=== PATIENT | female | born 1995 | race Caucasian/White ===

== ENCOUNTER 2016-10-19 00:53 | Emergency (ER) | payer OTHER, SELFPAY ==
[~2016-10-19] VITALS: Ht 154.9 cm; Wt 102.5 kg
[~2016-10-19 00:53] MED LIST: /ADVA50050 INH; ALBUTERAL INH; CIPRO PO; PRIL20CA OR
[2016-10-19 00:54] VITALS: BP 126/80
[2016-10-20] MEDS ORDERED: BACT800T5 PO (20:21)
== END 2016-10-19 03:33 | disposition left against medical advice (07) ==
LOC: M ED 00:53
DX: N64.9 Disorder of breast, unspecified (principal); Z53.29 Procedure and treatment not carried out because of patient's decision for other reasons

== ENCOUNTER 2016-10-20 19:29 | Emergency (ER) | payer SELFPAY ==
[~2016-10-20] VITALS: Ht 154.9 cm; Wt 100.9 kg
[2016-10-20 19:29] VITALS: BP 112/73
[2016-10-20] MEDS ORDERED: NORCO 5/325MG TABLET (BULK FOR ED) PO ONE (20:15)
[2016-10-20] MEDS ORDERED: BACTRIM 160MG/800MG DS TAB PO ONE (20:15)
[2016-10-20] MEDS ORDERED: BACT800T5 PO (20:21)
== END 2016-10-20 20:27 | disposition home or self-care (01) ==
LOC: EEVIPCON 19:29 → M ED 19:29
DX: N61.1 Abscess of the breast and nipple (principal); N61.0 Mastitis without abscess; J45.909 Unspecified asthma, uncomplicated; Z88.0 Allergy status to penicillin

== ENCOUNTER 2017-05-25 01:28 | Emergency (ER) | payer MEDICAID, SELFPAY, OTHER ==
[2017-05-25 03:28] LABS: APPEARANCE, URINE CLOUDY (CLEAR); BACTERIA, URINE AUTO NEGATIVE (NEGATIVE); BILIRUBIN, URINE AUTO NEGATIVE (NEGATIVE); BLOOD, URINE BLOOD 1+ (NEGATIVE); CALCIUM OXALATE CRYSTALS SMALL; COLOR, URINE YELLOW (YELLOW); GLUCOSE, URINE (UA) AUTO NEGATIVE (NEGATIVE); KETONE, URINE AUTO NEGATIVE (NEGATIVE); LEUKOCYTE ESTERASE, URINE AUTO NEGATIVE (NEGATIVE); MUCUS, URINE MODERATE (NEGATIVE); NITRITE, URINE AUTO NEGATIVE (NEGATIVE); PROTEIN, URINE AUTO NEGATIVE (NEGATIVE); RBC, URINE AUTO 2 /HPF (0-3); SPECIFIC GRAVITY URINE AUTO 1.027 (1.002-1.035); SQUAMOUS EPITHELIAL CELL UR AU 6 /HPF (0-6); WBC, URINE AUTO 1 /HPF (0-3)
== END 2017-05-25 04:06 | disposition home or self-care (01) ==
LOC: M ED 01:28
DX: R30.0 Dysuria (principal); F17.210 Nicotine dependence, cigarettes, uncomplicated; Z88.8 Allergy status to other drugs, medicaments and biological substances; Z88.0 Allergy status to penicillin
CPT/HCPCS: 81001

== ENCOUNTER 2017-06-18 19:55 | Emergency (ER) | payer SELFPAY ==
[2017-06-18 20:41] LABS: KETONE, URINE AUTO RFX NEGATIVE (NEGATIVE); LEUKOCYTE ESTERASE UR AUTO RFX NEGATIVE (NEGATIVE); MUCUS, URINE RFX SMALL (NEGATIVE); NITRITE, URINE AUTO RFX NEGATIVE (NEGATIVE); RBC, URINE AUTO RFX 1 /HPF (0-3); SPECIFIC GRAVITY UR AUTO RFX 1.024 (1.002-1.035); SQUAM EPITHELIAL CELL UR AURFX 2 /HPF (0-6); WBC, URINE AUTO RFX 1 /HPF (0-3)
== END 2017-06-19 00:29 | disposition left against medical advice (07) ==
LOC: M ED 19:55
DX: Z53.21 Procedure and treatment not carried out due to patient leaving prior to being seen by health care provider (principal)

== ENCOUNTER 2018-10-28 01:33 | Emergency (ER) | payer SELFPAY ==
[~2018-10-28] VITALS: Ht 154.9 cm; Wt 123.0 kg
[2018-10-28 01:33] VITALS: BP 133/90
[~2018-10-28 01:33] MED LIST changes: -/ADVA50050 INH; +ADVA1AER2 INH; +BACT800T5 PO
[2018-10-28] MEDS ORDERED: BACTRIM 160MG/800MG DS TAB PO ONE (02:30)
[2018-10-28] MEDS ORDERED: BACT800T5 PO (02:39)
[2018-10-28] MEDS ORDERED: NAPR-837 PO (02:39)
== END 2018-10-28 03:00 | disposition home or self-care (01) ==
LOC: M ED 01:33
DX: L81.8 Other specified disorders of pigmentation (principal); Z88.0 Allergy status to penicillin; Z88.1 Allergy status to other antibiotic agents

== ENCOUNTER 2019-03-13 09:34 | Emergency (ER) | payer SELFPAY ==
[~2019-03-13] VITALS: Ht 154.9 cm; Wt 110.3 kg
[~2019-03-13 09:34] MED LIST changes: +NAPR-837 PO
[2019-03-13 11:29] VITALS: BP 122/74
== END 2019-03-13 11:29 | disposition home or self-care (01) ==
LOC: M ED 09:34
DX: J02.9 Acute pharyngitis, unspecified (principal); J45.909 Unspecified asthma, uncomplicated; Z88.0 Allergy status to penicillin; Z88.1 Allergy status to other antibiotic agents; F17.210 Nicotine dependence, cigarettes, uncomplicated

== ENCOUNTER 2019-09-08 23:06 | Emergency (ER) | payer SELFPAY ==
[~2019-09-08] VITALS: Ht 157.5 cm; Wt 105.8 kg
[2019-09-08] MEDS ORDERED: BOOSTRIX/ADACEL VACCINE (DIPHTH/PERTUSS/ACELL/TETANUS) 0.5ML SYR IM ONE (23:45)
[2019-09-08] MEDS ORDERED: INFANRIX VACCINE SYRINGE (DIPHTH/TET/ACEL PERTUS PEDIATRIC) (CPT 90700) IM ONE (23:45)
[2019-09-09 00:27] VITALS: BP 150/90
== END 2019-09-09 00:49 | disposition home or self-care (01) ==
LOC: M ED 23:06
DX: S00.81XA Abrasion of other part of head, initial encounter (principal); S00.83XA Contusion of other part of head, initial encounter; V18.2XXA Unspecified pedal cyclist injured in noncollision transport accident in nontraffic accident, initial encounter; Y92.410 Unspecified street and highway as the place of occurrence of the external cause; E11.9 Type 2 diabetes mellitus without complications; K21.9 Gastro-esophageal reflux disease without esophagitis; Z88.0 Allergy status to penicillin; Z88.8 Allergy status to other drugs, medicaments and biological substances; Z23 Encounter for immunization

== ENCOUNTER 2020-01-27 15:20 | Emergency (ER) | payer MEDICAID, SELFPAY ==
[~2020-01-27] VITALS: Ht 157.5 cm; Wt 108.1 kg
[2020-01-27] MEDS ORDERED: CLIN150C14 PO (15:32)
[2020-01-27] MEDS ORDERED: KETOROLAC 30 MG/ML 1ML VIAL IV ONE (16:15)
[2020-01-27] MEDS ORDERED: NS 1,000 ML IV ONE (16:15)
[2020-01-27 16:53] LABS: BASO % 0.5 % (0.0-1.0); EOS # 0.2 10^3/uL (0.0-0.5); EOS % 2.1 % (0.0-3.0); HEMATOCRIT 40.7 % (36.0-47.0); HEMOGLOBIN 13.4 g/dl (12.0-15.5); LYMPH % 23.1 % (24.0-44.0); MEAN CORPUSCULAR HEMOGLOBIN 29.6 pg (27.0-33.0); MEAN CORPUSCULAR HGB CONC 32.9 g/dl (32.0-36.5); MONO # 0.8 10^3/uL (0.0-0.8); MONO % 8.6 % (0.0-5.0); NEUTROPHILS # 5.8 10^3/uL (1.5-8.5); NEUTROPHILS % 65.4 % (36.0-66.0); PLATELET COUNT, AUTOMATED 226 10^3/uL (150-450); RED BLOOD COUNT 4.52 10^6/uL (4.00-5.40); WHITE BLOOD COUNT 8.9 10^3/uL (4.0-10.0)
[2020-01-27 17:42] LABS: ERYTHROCYTE SEDIMENTATION RATE 18 mm/hr (0-20)
[2020-01-27] MEDS ORDERED: ISOVUE-370 76% 100ML VIAL As Ordered ONE (18:17)
[2020-01-27] MEDS ORDERED: CIPR-249 PO (20:11)
[2020-01-27] MEDS ORDERED: IBUP-1022 PO (20:11)
[2020-01-27] MEDS ORDERED: NORC1TAB7 PO (20:11)
[2020-01-27] MEDS ORDERED: CIPROFLOXACIN 500MG TABLET PO ONE (20:15)
[2020-01-27] MEDS ORDERED: NORCO 5/325MG TABLET (BULK FOR ED) PO ONE (20:15)
[2020-01-27 21:03] VITALS: BP 144/92
== END 2020-01-27 21:06 | disposition home or self-care (01) ==
LOC: M ED 15:20
DX: K04.7 Periapical abscess without sinus (principal); L03.211 Cellulitis of face; J45.909 Unspecified asthma, uncomplicated; K21.9 Gastro-esophageal reflux disease without esophagitis; F17.200 Nicotine dependence, unspecified, uncomplicated; Z88.0 Allergy status to penicillin; Z88.8 Allergy status to other drugs, medicaments and biological substances
CPT/HCPCS: 36415; 70487; 80047; 85025; 85652; 86140; 87040; 96361; 96374; 99284; J1885; Q9967

== ENCOUNTER 2020-09-05 10:26 | Emergency (ER) | payer MEDICAID, OTHER ==
[~2020-09-05] VITALS: Ht 157.5 cm; Wt 111.4 kg
[~2020-09-05 10:26] MED LIST changes: +CIPR-249 PO; +CLIN150C15 PO; +IBUP-1022 PO; +NORC1TAB7 PO
[2020-09-05] MEDS ORDERED: ACETAMINOPHEN 500 MG TAB PO ONE (11:30)
[2020-09-05] MEDS ORDERED: dexameTHASONE 20MG/5ML VIAL (J1100 PER 1MG) IV ONE (11:35)
[2020-09-05] MEDS ORDERED: CLINDAMYCIN 600 MG in IV 1 EA IV ONE (11:35)
[2020-09-05] MEDS ORDERED: ISOVUE-370 76% 100ML VIAL As Ordered ONE (12:32)
[2020-09-05 12:34] LABS: BASO # 0.1 10^3/uL (0.0-0.2); BASO % 0.6 % (0.0-1.0); EOS # 0.2 10^3/uL (0.0-0.5); HEMATOCRIT 37.7 % (36.0-47.0); HEMOGLOBIN 12.7 g/dl (12.0-15.5); LYMPH # 2.2 10^3/uL (1.5-5.0); MEAN CORPUSCULAR HEMOGLOBIN 29.9 pg (27.0-33.0); MEAN CORPUSCULAR HGB CONC 33.7 g/dl (32.0-36.5); MEAN CORPUSCULAR VOLUME 88.7 fl (80.0-96.0); MONO # 0.8 10^3/uL (0.0-0.8); MONO % 10.3 % (2.0-8.0); NEUTROPHILS # 4.7 10^3/uL (1.5-8.5); NEUTROPHILS % 58.8 % (36.0-66.0); PLATELET COUNT, AUTOMATED 194 10^3/uL (150-450); RED BLOOD COUNT 4.25 10^6/uL (4.00-5.40)
--- NOTE | 2020-09-05 13:32 | REP ---
INDICATION: r/o abscess, R facial swelling. COMPARISON: 01/27/2020. TECHNIQUE: Axial CT through the maxillofacial region performed following the intravenous administration of 75 mL Isovue 370. Sagittal and coronal reconstruction images are performed. FINDINGS: Mild mucosal thickening in the right maxillary sinus. Previously noted periapical abscess involving the right upper 2nd premolar is again noted, decreased since prior study. 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 Lymph nodes in the right neck soft tissues are mild the larger than the left side, but are not pathologically enlarged based on CT criteria. These are likely reactive. Right facial soft tissues demonstrate diffuse ill-defined edema and inflammatory change similar to the prior exam. No focal fluid collection or facial abscess is seen. The orbits and globes are unremarkable. Mastoid air cells are clear. Middle ear spaces are clear. Oropharynx is unremarkable. The submandibular and parotid glands are unremarkable. IMPRESSION: The previously noted periapical abscess involving the right upper 2nd premolar is again noted, decreased since the prior study. Once again to his since of the overlying maxillary bone laterally is noted. There are findings of right facial soft tissue cellulitis without evidence of facial soft tissue abscess. <Electronically signed by Kael Hugo > 09/05/20 1205
[2020-09-05] MEDS ORDERED: CLEO300C2 PO (14:25)
[2020-09-05] MEDS ORDERED: HYDR-3713 PO (14:25)
[2020-09-05 15:55] VITALS: BP 120/80
== END 2020-09-05 14:51 | disposition home or self-care (01) ==
LOC: M ED 10:26
DX: K04.7 Periapical abscess without sinus (principal); K02.9 Dental caries, unspecified; L03.211 Cellulitis of face; E11.9 Type 2 diabetes mellitus without complications; J45.909 Unspecified asthma, uncomplicated; K21.9 Gastro-esophageal reflux disease without esophagitis; F17.200 Nicotine dependence, unspecified, uncomplicated; Z79.2 Long term (current) use of antibiotics; Z88.0 Allergy status to penicillin; Z88.8 Allergy status to other drugs, medicaments and biological substances
CPT/HCPCS: 70487; 80047; 85025; 87040; 96365; 96375; 99283; J1100; Q9967

== ENCOUNTER → 2020-09-12 | Outpatient (CLI) | payer SELFPAY ==
[~2020-09-12] MED LIST changes: +CLEO300C2 PO; +HYDR-3713 PO
== END ==
LOC: M LABSMTC 09:54
PROVIDERS: ATTEND Pediatrics
DX: Z11.52 Encounter for screening for COVID-19 (principal)

== ENCOUNTER 2022-02-17 12:58 | Emergency (ER) | payer OTHER ==
[~2022-02-17] VITALS: Ht 154.9 cm; Wt 133.7 kg
[~2022-02-17 12:58] MED LIST changes: -CLIN150C15 PO; +CLIN150C17 PO
[2022-02-17 12:59] VITALS: BP 141/91
== END 2022-02-17 16:05 | disposition left against medical advice (07) ==
LOC: M ED 12:58
DX: Z53.21 Procedure and treatment not carried out due to patient leaving prior to being seen by health care provider (principal)

== ENCOUNTER → 2022-03-06 | Outpatient (REF) | payer OTHER ==
[2022-03-06 18:47] LABS: APPEARANCE, URINE MANUAL CLOUDY (CLEAR); BILIRUBIN, URINE MANUAL NEGATIVE (NEGATIVE); BLOOD URINE MANUAL NEGATIVE (NEGATIVE); COLOR, URINE MANUAL YELLOW (YELLOW); GLUCOSE, URINE (UA) MANUAL NEGATIVE (NEGATIVE); KETONE, URINE MANUAL NEGATIVE (NEGATIVE); LEUKOCYTE ESTERASE, URINE MAN POSITIVE (NEGATIVE); NITRITE, URINE MANUAL NEGATIVE (NEGATIVE); PROTEIN, URINE MANUAL NEGATIVE (NEGATIVE); UROBILINOGEN, URINE MANUAL NORMAL (NORMAL)
[2022-03-06 19:21] LABS: RBC, URINE NONE SEEN /hpf (0-3); WBC, URINE NONE SEEN /hpf (0-3)
[2022-03-06 19:22] LABS: AMORPHOUS SEDIMENT, URINE LARGE AMOUNT (NEGATIVE); BACTERIA, URINE NONE SEEN; HYALINE CAST, URINE NONE SEEN /lpf (0-1); SQUAMOUS EPITHELIAL CELL URINE NONE SEEN /hpf (SMALL AMT)
[2022-03-06 19:26] LABS: BLOOD UREA NITROGEN 11 MG/DL (9-23); CREATININE FOR GFR 0.63 MG/DL (0.55-1.30); GLUCOSE, FASTING 95 MG/DL (60-100)
[2022-03-06 19:27] LABS: ALBUMIN 3.7 G/DL (3.2-5.2); ALT/SGPT 23 U/L (7.0-40); BILIRUBIN,TOTAL 0.5 MG/DL (0.3-1.2); CALCIUM LEVEL 8.8 MG/DL (8.5-10.1); CARBON DIOXIDE LEVEL 26 MMOL/L (20-31); CHLORIDE LEVEL 106 MMOL/L (98-107); CHOLESTEROL LEVEL 151 MG/DL (<200); CHOLESTEROL RISK RATIO 3.42 (<5); GLOMERULAR FILTRATION RATE > 60.0 (>60); HDL CHOLESTEROL 44.1 MG/DL (>40); LDL CHOLESTEROL 94.7 MG/DL (<100); NON-HDL-C 107 MG/DL; POTASSIUM SERUM 4.2 MMOL/L (3.5-5.1); SODIUM LEVEL 141 MMOL/L (136-145); THYROID STIMULATING HORMONE 1.443 uIU/ML (0.55-4.78); TOTAL 25(OH) VITAMIN D 12.1 NG/ML (20.0-100.0); TOTAL PROTEIN 6.7 G/DL (5.7-8.2); TRIGLYCERIDES LEVEL 61 MG/DL (<150)
[2022-03-06 20:06] LABS: GC DNA AMPLIFICATION NEGATIVE (NEGATIVE)
[2022-03-07 06:10] LABS: HEMOGLOBIN A1c 4.8 % (4.0-6.0)
== END ==
LOC: M LAB REF 16:23
PROVIDERS: ATTEND Nurse Practitioner Family
DX: Z13.228 Encounter for screening for other metabolic disorders (principal); N94.6 Dysmenorrhea, unspecified

== ENCOUNTER 2023-03-23 21:45 | Emergency (ER) | payer OTHER ==
[~2023-03-23] VITALS: Ht 157.5 cm; Wt 138.5 kg
[2023-03-23 23:57] VITALS: BP 159/90; TEMP 97.6; O2SAT 98
== END 2023-03-24 01:59 | disposition left against medical advice (07) ==
LOC: M ED 21:45
DX: Z53.21 Procedure and treatment not carried out due to patient leaving prior to being seen by health care provider (principal)

== ENCOUNTER 2023-11-30 23:48 | Emergency (ER) | payer OTHER ==
[~2023-11-30] VITALS: Ht 154.9 cm; Wt 133.3 kg
[2023-11-30 23:50] VITALS: BP 147/98; TEMP 97.7; O2SAT 98
== END 2023-12-01 04:14 | disposition home or self-care (01) ==
LOC: M ED 23:48
DX: T23.201A Burn of second degree of right hand, unspecified site, initial encounter (principal); F17.210 Nicotine dependence, cigarettes, uncomplicated; F12.10 Cannabis abuse, uncomplicated; F10.10 Alcohol abuse, uncomplicated; Z88.0 Allergy status to penicillin; Z88.8 Allergy status to other drugs, medicaments and biological substances; T31.0 Burns involving less than 10% of body surface

== ENCOUNTER 2024-07-03 07:50 | Emergency (ER) | payer OTHER ==
[~2024-07-03] VITALS: Ht 157.5 cm; Wt 123.0 kg
[2024-07-03] MEDS: KETOROLAC 30 MG/ML 1ML VIAL IM ONE (08:21)
[2024-07-03] MEDS ORDERED: AMOX875T2 PO (08:23)
[2024-07-03] MEDS ORDERED: IBUP80TA PO (08:23)
[2024-07-03] MEDS: AUGMENTIN 875 MG TAB PO ONE (08:23)
[2024-07-03 08:28] VITALS: BP 157/78; TEMP 98.1; O2SAT 98
== END 2024-07-03 08:32 | disposition home or self-care (01) ==
LOC: M ED 07:50
DX: H65.192 Other acute nonsuppurative otitis media, left ear (principal); Z88.0 Allergy status to penicillin
CPT/HCPCS: 96372; 99283; J1885

== ENCOUNTER 2024-07-26 10:39 | Emergency (ER) | payer OTHER ==
[~2024-07-26] VITALS: Ht 157.5 cm; Wt 122.8 kg
[~2024-07-26 10:39] MED LIST changes: +AMOX875T2 PO; +IBUP80TA PO
[2024-07-26] MEDS ORDERED: PRED10TA2 PO (14:25)
[2024-07-26 14:26] VITALS: BP 144/89; TEMP 97.3; O2SAT 98
[2024-07-26] MEDS: predniSONE 20 MG TAB PO ONE (14:31)
== END 2024-07-26 14:32 | disposition home or self-care (01) ==
LOC: M ED 10:39
DX: M26.602 Left temporomandibular joint disorder, unspecified (principal); R68.84 Jaw pain; E11.9 Type 2 diabetes mellitus without complications; F17.210 Nicotine dependence, cigarettes, uncomplicated; Z88.0 Allergy status to penicillin; Z88.8 Allergy status to other drugs, medicaments and biological substances; Z79.1 Long term (current) use of non-steroidal anti-inflammatories (NSAID); Z79.2 Long term (current) use of antibiotics; Z79.52 Long term (current) use of systemic steroids
CPT/HCPCS: 99283; J7512

== ENCOUNTER 2024-12-22 20:53 | Emergency (ER) | payer OTHER ==
[~2024-12-22] VITALS: Ht 157.5 cm; Wt 120.3 kg
[~2024-12-22 20:53] MED LIST changes: -IBUP-1022 PO; +IBUP600T42 PO; +PRED10TA2 PO
[2024-12-22 20:55] VITALS: BP 160/86; TEMP 98.7; O2SAT 100
== END 2024-12-23 00:14 | disposition left against medical advice (07) ==
LOC: M ED 20:53
DX: Z53.21 Procedure and treatment not carried out due to patient leaving prior to being seen by health care provider (principal)